=== PATIENT | male | born 1950 | race Caucasian/White ===

== ENCOUNTER → 2017-01-18 | Outpatient (CLI) | payer MEDICARE | LOC: MW.CHFP 08:00 | DX: E53.8 Deficiency of other specified B group vitamins (principal) | CPT/HCPCS: 96372; J3420 ==

== ENCOUNTER → 2017-02-20 | Outpatient (CLI) | payer MEDICARE | LOC: MW.CHFP 08:00 | PROVIDERS: ATTEND Emergency Medicine | DX: E53.8 Deficiency of other specified B group vitamins (principal) | CPT/HCPCS: 96372; J3420 ==

== ENCOUNTER → 2017-03-27 | Outpatient (CLI) | payer MEDICARE | END | disposition home or self-care (01) | LOC: MW.CHFP 09:04 | PROVIDERS: ATTEND Emergency Medicine | DX: Z00.00 Encounter for general adult medical examination without abnormal findings (principal); E11.9 Type 2 diabetes mellitus without complications; Z79.4 Long term (current) use of insulin; E53.8 Deficiency of other specified B group vitamins | CPT/HCPCS: 36415; 80053; 80061; 82044; 83036; 96372; G0463; J3420 ==

== ENCOUNTER 2017-08-14 07:29 | Day surgery (SDC) | payer MEDICARE ==
[~2017-08-14 07:29] MED LIST: Lactated Ringers 1,000 ML IV SCH
--- NOTE | 2017-08-14 08:37 | PCM.PREANE ---
Preanesthetic Assessment - Anesthesia/Transfusion/Family Hx Anesthesia History: Prior Anesthesia Without Reaction Other Type of Anesthesia Reaction Comment: Denies any known problem with anesthesia in past Family History of Anesthesia Reaction: No Transfusion History: No Prior Transfusion(s) Intubation History: Unknown - Review of Systems General: No Symptoms Pulmonary: No Symptoms Cardiovascular: No Symptoms Gastrointestinal: No Symptoms Neurological: No Symptoms Other: Reports: None - Physical Assessment NPO Status Date: 08/13/17 NPO Status Time: 22:00 O2 Sat by Pulse Oximetry: 96 Respiratory Rate: 16 Vital Signs: Last Vital Signs Temp 36.5 C 08/14/17 07:50 Pulse 90 08/14/17 07:50 Resp 16 08/14/17 07:50 BP 124/75 08/14/17 07:50 Pulse Ox 96 08/14/17 07:50 Height: 1.78 m Weight: 89.811 kg ASA Class: 3 Mental Status: Alert & Oriented x3 Airway Class: Mallampati = 2 Dentition: Reports: Dentures (upper and lower) Thyro-Mental Finger Breadths: 3 Mouth Opening Finger Breadths: 3 ROM/Head Extension: Full Lungs: Clear to Auscultation, Normal Respiratory Effort, Decreased Breath Sounds Cardiovascular: Regular Rate, Regular Rhythm - Allergies Allergies/Adverse Reactions: Allergies Allergy/AdvReac Type Severity Reaction Status Date / Time morphine Allergy Cardiac Verified 05/12/15 12:12 Arrest - Blood Blood Available: No - Anesthesia Plan Pre-Op Medication Ordered: None - Acknowledgements Anesthesia Type Planned: MAC Pt an Appropriate Candidate for the Planned Anesthesia: Yes Alternatives and Risks of Anesthesia Discussed w Pt/Guardian: Yes Pt/Guardian Understands and Agrees with Anesthesia Plan: Yes PreAnesthesia Questionnaire - Past Health History Medical/Surgical History: Denies Medical/Surgical History HEENT History: Reports: Macular Degeneration, Other (See Below) Other HEENT History: wears glasses (poor vision), top and bottom dentures Respiratory History: Reports: COPD, Other (See Below) Other Respiratory History: Reports was smoker, QUIT 11/09/2014, 50 + pack year smoker Gastrointestinal History: Reports: Other (See Below) Other Gastrointestinal History: Short Bowel syndrome, colostomy (since 1997), crohns disease Genitourinary History: Reports: Other (See Below) (chronic renal insuff.) Musculoskeletal History: Reports: Back Pain, Chronic, Fracture, Gout, Osteoarthritis Other Musculoskeletal History: Lower leg fracture Neurological History: Reports: None Psychiatric History: Reports: Depression Endocrine/Metabolic History: Reports: Diabetes, Type II, Other (See Below) Other Endocrine/Metabolic History: Insulin dependent Type II Diabetes (A1C 8.5) , glucose level 159 at 07 30 this morning Hematologic History: Reports: B12 Deficiency - Past Surgical History Head Surgeries/Procedures: Reports: None HEENT Surgical History: Reports: Cataract Surgery GI Surgical History: Reports: Cholecystectomy, Colon, Colonoscopy, Colostomy, Other (See Below) Other GI Surgeries/Procedures: multiple small bowel resection, hx proctectomy with permanent colostomy Neurological Surgical History: Reports: Other (See Below) Other Neurological Surgeries/Procedures: Lumbar surgery Musculoskeletal Surgical History: Reports: Arthroscopic Knee, Carpal Tunnel Other Musculoskeletal Surgeries/Procedures:: Low back surgery - SUBSTANCE USE Smoking Status *Q: Former Smoker (quit 3 years ago) Tobacco Use Within Last Twelve Months: Cigarettes Second Hand Smoke Exposure: No Days Per Week of Alcohol Use: 0 Recreational Drug Use History: No - HOME MEDS Home Medications: Home Meds Alendronate [Fosamax] 70 mg PO WEEKLY 03/10/14 [History] Allopurinol [Zyloprim] 300 mg PO DAILY 03/10/14 [History] Aspirin [Sari Chewable Aspirin] 81 mg PO DAILY 03/10/14 [History] Calcium Carbonate/Vitamin D3 [Calcium 600-Vit D3 400 Tablet] 1 each PO BID 03/10 [History] Potassium Chloride [Klor-Con] 20 meq PO TID 03/10/14 [History] buPROPion [Wellbutrin] 75 mg PO ASDIRECTED 03/10/14 [History] Cyanocobalamin (Vitamin B12) [Vitamin B12] 1 injection IM ASDIRECTED 05/12/15 [ History] Fish Oil/DHA/EPA [Fish Oil 1,200 MG] 2 tab PO BID 05/12/15 [History] Insuln Asp Prot/Insulin Aspart [NovoLOG Mix 70-30] 20 units SQ ACDIN 05/12/15 [ History] Insuln Asp Prot/Insulin Aspart [NovoLOG Mix 70-30] 30 unit SUBCUT ACBREAKFAST [History] Cholecalciferol (Vitamin D3) [Vitamin D3] 1,000 units PO BID 08/10/17 [History] Furosemide [Lasix] 20 mg PO ASDIRECTED PRN 08/10/17 [History] Ramipril 2.5 mg PO DAILY 08/10/17 [History] - CURRENT (IN HOUSE) MEDS Current Meds: Current Medications Lactated Ringer's (Ringers, Lactated) 1,000 mls @ 125 mls/hr IV ASDIRECTED NELLA Last Admin: 08/14/17 07:52 Dose: 125 mls/hr
[2017-08-14] MEDS ORDERED: Propofol 200 MG/20 ML SDV ONE ×2 (09:24→10:37)
[2017-08-14] MEDS ORDERED: fentaNYL 100 MCG/2 ML SDV ONE (09:24)
[2017-08-14] MEDS ORDERED: Midazolam 1 MG/ML 2 ML SDV ONE (09:24)
[2017-08-14] MEDS ORDERED: Phenylephrine/Normal Saline 100 MCG/ML 10 ML Syringe ONE (10:40)
--- NOTE | 2017-08-14 11:06 | PCM.OPNOTE ---
- General Post-Op/Procedure Note Date of Surgery/Procedure: 08/14/17 Operative Procedure(s): Trans-stomal colonoscopy Pre Op Diagnosis: History of Crohn's colitis Post-Op Diagnosis: No acute inflammatory change Anesthesia Technique: MAC (ASA III) Primary Surgeon: Franki Garay Feather Drying Machine Operator: Elizabeth Gaxiola Condition: Good Free Text/Narrative:: Dictation [id number]
[2017-08-14] MEDS ORDERED: Lactated Ringers 1,000 ML IV SCH (11:15)
[2017-08-14 11:34] VITALS: BP 111/77
--- NOTE | 2017-08-14 16:33 | OR ---
SURGEON: Franki Garay M.D. DATE OF PROCEDURE: 08/14/2017 OPERATION PERFORMED: Colonoscopy with biopsy of distal transverse colon. ANESTHESIA: MAC. ASA CLASSIFICATION: III. PREOPERATIVE DIAGNOSIS: Personal history of Crohn's disease. POSTOPERATIVE DIAGNOSIS: No neoplasia. DESCRIPTION OF PROCEDURE: The patient was taken to the endoscopy room, positioned on the endoscopy table in the supine position as he has a colostomy from previous resection of his rectum. Time-out was called for appropriate identification of the patient and procedure. Digital examination of the stoma was carried out. Following this, the colonoscope was inserted through the stoma and advanced without difficulty through the very short remaining segment of this colon into the distal small bowel, where examination was now carried out in an antegrade fashion. The anastomosis was widely patent and shows no acute inflammatory changes or ulcerations. There were some small petechiae in the distal transverse colon. Biopsies of this area were obtained. Remainder of the colon shows no acute inflammatory changes or ulcerations. No polyps were encountered. There was no evidence of diverticulosis. The colonoscope was then removed with the patient having tolerated the procedure well. He was taken to recovery room in stable condition. FERNANDO LEE /[id number] JANIYA
== END 2017-08-14 11:50 | disposition home or self-care (01) ==
LOC: MW.SDS 07:29
PROVIDERS: ATTEND Surgery
DX: Z12.11 Encounter for screening for malignant neoplasm of colon (principal); K50.90 Crohn's disease, unspecified, without complications; Z93.3 Colostomy status; E53.8 Deficiency of other specified B group vitamins; E11.22 Type 2 diabetes mellitus with diabetic chronic kidney disease; N18.9 Chronic kidney disease, unspecified; M19.049 Primary osteoarthritis, unspecified hand; J44.9 Chronic obstructive pulmonary disease, unspecified; F32.9 Major depressive disorder, single episode, unspecified; M96.1 Postlaminectomy syndrome, not elsewhere classified; M17.0 Bilateral primary osteoarthritis of knee; M81.0 Age-related osteoporosis without current pathological fracture; G89.4 Chronic pain syndrome; E11.42 Type 2 diabetes mellitus with diabetic polyneuropathy; M47.26 Other spondylosis with radiculopathy, lumbar region; K91.2 Postsurgical malabsorption, not elsewhere classified; M10.9 Gout, unspecified; Z98.0 Intestinal bypass and anastomosis status; Z90.49 Acquired absence of other specified parts of digestive tract; Z98.890 Other specified postprocedural states; Z88.5 Allergy status to narcotic agent; Z79.4 Long term (current) use of insulin; Z79.82 Long term (current) use of aspirin; Z79.899 Other long term (current) drug therapy; Z87.891 Personal history of nicotine dependence
CPT/HCPCS: 44389; 88305; J2250; J3010; J7120; 00810; J2704

== ENCOUNTER 2019-09-03 10:48 | Day surgery (SDC) | payer MEDICARE ==
[~2019-09-03 10:48] MED LIST changes: +Betamethasone Acetate/Betamethasone Sod Phosphate 30 MG/5 ML MDV EPIDUR ONE; +Iopamidol 200-M 10 ML vial ITHECAL ONE; -Lactated Ringers 1,000 ML IV SCH; +Lidocaine 2% 5 ML SDV INJECT ONE; +Ropivacaine 0.5% 5 MG/ML 30 ML SDV INJECT ONE
[2019-09-03] MEDS ORDERED: Iopamidol 408 MG/ML 50 ML SDV ONE (12:34)
[2019-09-03] MEDS ORDERED: Iopamidol 200-M 10 ML vial ITHECAL ONE (16:06)
[2019-09-03] MEDS ORDERED: Ropivacaine 0.5% 5 MG/ML 30 ML SDV INJECT ONE (16:06)
--- NOTE | 2019-09-03 20:10 | OR ---
SURGEON: Mindi Wilkins D.O. DATE OF PROCEDURE: 09/03/2019 PRIMARY SURGEON: Mindi Wilkins D.O. WAREHOUSE PACKAGING SUPERVISOR: OR staff present: 1. Anita Degroot. 2. Ulises Luna. 3. RT. Nadeem WOUND CLASS: I. PREOPERATIVE DIAGNOSES: 1. Failed back surgery syndrome. 2. Left lower extremity radiculopathy. 3. Chronic lumbosacral back pain. POSTOPERATIVE DIAGNOSES: 1. Failed back surgery syndrome. 2. Left lower extremity radiculopathy. 3. Chronic lumbosacral back pain. PROCEDURE PERFORMED: 1. Left S1 and S2 transforaminal epidural steroid injection. 2. Fluoroscopic guidance for needle placement. 3. Local with oral valium for sedation. SCREENING QUESTIONS: The patient answered "no" to all of the following questions: 1. Are you allergic to iodine, Betadine or latex? 2. Do you have a bleeding disorder? 3. Do you have any joint replacements, heart valve replacements, or a pacemaker? 4. Are you allergic to anti-inflammatories or blood thinners? 5. Do you have any current local or systemic infections? MEDICAL NECESSITY: This is a patient with a history of chronic low back pain and lower extremity radicular pain in the above dermatomal pattern that comes in for the above diagnostic and therapeutic procedure. Pertinent positives and negatives for this suspected disease process along with the diagnostic findings and testing are in the patient's history and physical exam. The most salient feature includes radicular pain in the above dermatomal pattern. The patient had failed attempts at conservative therapy including physical therapy, nonsteroidal anti- inflammatory drugs, and other medications. No contraindications to perform this procedure including medical, no bleeding disorders or infections, no psychological, no antisocial personality disorder or active addiction disorder. There are no work-related issues, and, in general, the patient does not have any history of multiple prior interventions, surgeries or nerve blocks which have failed to return the patient to function. The patient's other symptoms to be treated include numbness, paresthesia, dysesthesia or hypoesthesia referred into the left lower extremity or any weakness in the involved myotome. This procedure is being performed in accordance with national guidelines as written by the [employer] (SU). DESCRIPTION OF PROCEDURE: The patient had the procedure thoroughly explained including risks, benefits and alternatives. Consent was signed in my clinic indicating understanding and willingness to proceed. The patient presented to [facility] [place] where the patient was escorted to the dressing room to disrobe and change into a hospital gown. Preoperative vital signs were taken and stable. The patient reported that Valium was taken prior to the procedure. The patient was brought to the procedure room and placed in the prone position on the table. A pillow was placed under the abdomen in order to flatten the lumbar lordosis. The back was prepped with ChloraPrep and sterilely draped. All personnel in the operating room were dressed in appropriate attire including surgical scrubs, head and shoe covers. This was to ensure sterility while in the treatment room. During the time fluoroscopy was in use, all personnel in the operating room wore lead ernst with thyroid collars. Sterile technique was used during the procedure. The fluoroscope was placed for the S1 transforaminal epidural steroid injection. There was no sign of infection at the skin site for needle insertion. The skin was anesthetized with 2% lidocaine with a 27 gauge 1-1/2 inch needle. Then a 22 gauge 3-1/2 inch spinal needle, advanced to the foramen. Positive intravascular flow pattern was observed and positive heme with aspiration- Spinal needle was removed and repositioned. The fluoroscope was placed for the S1 Transforaminal epidural steroid injection. The skin was anesthetized with 2% lidocaine and then a3-1/2 inch spinal needle was advanced into the S2 foramen. Under direct fluoroscopic guidance needle position was verified in three views; AP, oblique and lateral, with 0.2 cubic centimeters increments of Isovue-200 dye. No intravascular flow pattern was observed under live fluoroscopy. A total of 12 milligrams of Celestone was slowly injected after negative aspiration of heme, cerebrospinal fluid and no paresthesias were noted. Then 3 cc of local inj 0.5% ropivacaine was injectede without complications The needle was cleared prior to removal from the skin. No adverse reactions were noted. The patient was brought to the recovery room awake and in good condition by my staff. The patient was monitored and discharge instructions were given after a brief stay in the recovery area. Both oral and written discharge and follow up instructions were given. The patient will follow up in the clinic in 3-4 weeks post procedure to evaluate the efficacy. The patient verbalized understanding including understanding of those signs and symptoms that would require emergency care and knows how to contact the office if there are any problems or questions in the meantime. PREOPERATIVE PAIN: 7/10. POSTOPERATIVE PAIN: 0/10. FOLLOWUP: In the Pain Clinic in 3 weeks. PAULA LEE /[id number] JANIYA
--- NOTE | 2019-09-04 15:54 | CR ---
Pelvis: Four fluoroscopic spot views were obtained centered to the right side of the sacrum. Study is a procedural exam for fluoroscopy-guided pain injection. No additional comments can be made. Impression: Procedural study. Diagnostic code #2 MTDD
== END 2019-09-03 13:15 | disposition home or self-care (01) ==
LOC: MW.SDS 10:48
PROVIDERS: ATTEND Anesthesiology
DX: G89.29 Other chronic pain (principal); M96.1 Postlaminectomy syndrome, not elsewhere classified; M19.049 Primary osteoarthritis, unspecified hand; M51.16 Intervertebral disc disorders with radiculopathy, lumbar region; M47.26 Other spondylosis with radiculopathy, lumbar region; N18.9 Chronic kidney disease, unspecified; J44.9 Chronic obstructive pulmonary disease, unspecified; E11.9 Type 2 diabetes mellitus without complications; M17.0 Bilateral primary osteoarthritis of knee; M81.0 Age-related osteoporosis without current pathological fracture; Z88.5 Allergy status to narcotic agent; Z79.4 Long term (current) use of insulin; Z79.899 Other long term (current) drug therapy; Z79.82 Long term (current) use of aspirin; Z87.891 Personal history of nicotine dependence
CPT/HCPCS: 64483; J0702; Q9966; 62323

== ENCOUNTER 2020-11-29 15:25 | Emergency (ER) | payer MEDICARE ==
[2020-11-29] MEDS ORDERED: traMADol 50 MG Tab PO ONE (16:38)
--- NOTE | 2020-11-29 16:41 | CR ---
Indication: Patient fell onto left side 1 day ago. Pain and swelling. Technique: Three views of the left elbow. Comparison: None Findings: No acute fracture or subluxation is identified. The joint spaces are well maintained. A trace joint effusion is identified. Impression: Trace joint effusion. Dictated by Jessica Amaya MD @ Nov 29 2020 4:38PM Signed by Dr. Jessica Amaya @ Nov 29 2020 4:39PM
--- NOTE | 2020-11-29 16:41 | CR ---
Indication: Fall. Swelling. Technique: Three views of the left wrist. Comparison: None Findings: Degenerative changes are identified at the 1st carpometacarpal joint space. No fracture or subluxation is identified. Impression: Degenerative change. No fracture identified. Dictated by Jessica Amaya MD @ Nov 29 2020 4:39PM Signed by Dr. Jessica Amaya @ Nov 29 2020 4:40PM
--- NOTE | 2020-11-29 16:43 | CR ---
INDICATION: Fell onto left side 1 day ago. Pain and swelling. Limited range of motion. COMPARISON: None. TECHNIQUE: Left shoulder 2 views. FINDINGS: No acute fracture is seen. Possible anterior subluxation versus dislocation on outlet view. IMPRESSION: Possible anterior subluxation/dislocation, although outlet view is suboptimal. Recommend repeat outlet view and/or axillary view. Dictated by Milan Noel MD @ Nov 29 2020 4:35PM Signed by Dr. Milan Noel @ Nov 29 2020 4:42PM
--- NOTE | 2020-11-29 16:44 | EDM.PDOC ---
ED HPI GENERAL MEDICAL PROBLEM - General Chief Complaint: Upper Extremity Injury/Pain Stated Complaint: n Time Seen by Provider: 11/29/20 15:26 Source of Information: Reports: Patient History Limitations: Reports: No Limitations - History of Present Illness INITIAL COMMENTS - FREE TEXT/NARRATIVE: HISTORY AND PHYSICAL: History of present illness: Patient is a 70-year-old male who presents to the emergency room with complaints of left shoulder, left elbow and left wrist pain post fall. He reports that 2 AM on 11/28/20 he was walking into his bathroom when he turned striking his head on the shower resulting in him falling. He denies any loss of consciousness but has had left upper extremity pain since. Patient denies any fever, chills, headache, change in vision, syncope or near syncope. Denies any chest pain, back pain, shortness of breath or cough. Denies any abdominal pain, nausea, vomiting, diarrhea, constipation or dysuria. Has not noted any blood in urine or stool. Patient has been eating and drinking appropriately. Tdap UTD. Review of systems: As per history of present illness and below otherwise all systems reviewed and negative. Past medical history: As per history of present illness and as reviewed below otherwise noncontributory. Surgical history: As per history of present illness and as reviewed below otherwise noncontributory. Social history: See social history for further information Family history: As per history of present illness and as reviewed below otherwise noncontributory. Physical exam: General: Well developed and well nourished 70-year-old male. Alert and orientated x 3. Nontoxic in appearance and in no acute distress. Vital signs are stable and have been reviewed by me. Nursing notes were reviewed. HEENT: Healing abrasion noted to the left temporal/eyebrow area (approx 9mm). Scalp is nontender, normocephalic, pupils equal and reactive bilaterally, negative for conjunctival pallor or scleral icterus, mucous membranes moist, TMs normal bilaterally, throat clear, neck supple, nontender, trachea midline. No drooling or trismus noted. No meningeal signs. No hot potato voice noted. Lungs: Clear to auscultation, breath sounds equal bilaterally, chest nontender. Normal work of breathing, no accessory muscles used. Heart: S1S2, regular rate and rhythm without overt murmur Abdomen: Soft, nondistended, nontender. Negative for masses or hepatosplenomegaly. Negative for costovertebral tenderness. C-spine/Back: No pinpoint vertebral tenderness upon palpation. No crepitus, step-offs or obvious deformities. Patient is ambulatory into the emergency room without difficulty or deficit. Able to rock back on heels and walk on toes. Denies any urinary or fecal incontinence. Denies any numbness, tingling or saddle paresthesia. No concerns of serious infection, fracture or cord compression, or cauda equina syndrome. Deep tendon reflexes brisk bilaterally. Skin: Healing abrasion noted to the left temporal/eyebrow area (approx 9mm). Remaining skin is intact, warm, dry. No lesions or rashes noted. Hematologic: No petechiae or purpra. Mucosa appropriate color and normal nail bed color and refill. Extremities: Limited ROM due to pain of the left shoulder, tenderness to left anterior shoulder girdle. Mild tenderness to the lateral aspect of the left elbow, with full ROM. Tenderness with palpation to the radial aspect of the left wrist with mild soft tissue swelling. Pelvis stable. He otherwise moves all other extremities per self without difficulty or deficits, negative for cords or calf pain. Neurovascular unremarkable. Neuro: Awake, alert, oriented. Cranial nerves II through XII unremarkable. Cerebellum unremarkable. Motor and sensory unremarkable throughout. Exam nonfocal. Psychiatric: Mood and affect are appropriate. Normal thought process. Answering questions appropriately. Notes: *This patient was seen and evaluated during the 2019 SARS-CoV-2 novel coronavirus pandemic period. Community viral transmission is ongoing at time of this encounter and the emergency department is operating under pandemic response procedures. Head CT shows no acute intracranial hemorrhage or mass. Left elbow x-ray shows trace joint effusion. No acute fracture or subluxation is identified. Wrist shows degenerative changes. No fracture identified. Left shoulder shows a possible anterior subluxation/dislocation, although outlet view is suboptimal. Recommend repeat outlet view and/or axillary view was obtained. Repeat view shows the glenohumeral alignment is within the limits. No evidence of dislocation. I have talked with the patient about today's findings, in addition to providing specific details for plan of care. Fitted for a left wrist cock-up splint and sling for the wrist sprain and shoulder injury. Assist in resting the extremity. To wear over the next 2-3 days or until he follows up with orthopedics. Reassessment at the time of disposition demonstrates that the patient is in no acute distress. The patient is stable for discharge, counseling was provided and we discussed in great detail signs and symptoms that would prompt them to return to the Emergency Department. Medication, follow up and supportive care measures were reviewed and discussed. Voices understanding and is agreeable to plan of care. Denies any further questions or concerns at this time. Diagnostics: Head CT, Xray left wrist/elbow/shoulder Therapeutics: Tramadol, wrist splint and sling Prescription: Tramadol (#15) Impression: Fall Left shoulder injury Left wrist sprain Plan: 1. X-ray shows no fractures. Rest, ice and elevate the extremity as able. You may use the wrist splint and sling over the next 2-3 days to keep the arm comfortable. Ice to the areas (15 minutes on/off) - do not apply directly to the skin. 2. You can alternate Tylenol and ibuprofen as needed for pain and fever management. 3. We encourage you to follow up with your primary care provider and/or orthopedic provider in the next few days for re-evaluation and further care/management. 4. If your symptoms should worsen, new symptoms develop or any of the signs and symptoms we discussed should arise please return to the emergency room or call 911 (if needed). Definitive disposition and diagnosis as appropriate pending reevaluation and review of above. Left Arm Pain Score (Numeric/FACES): 10 - Related Data Allergies Allergy/AdvReac Type Severity Reaction Status Date / Time morphine Allergy Cardiac Verified 11/29/20 15:30 Arrest Home Meds: Home Meds Alendronate [Fosamax] 70 mg PO WEEKLY 03/10/14 [History] Aspirin [Sari Chewable Aspirin] 81 mg PO DAILY 03/10/14 [History] Calcium Carbonate/Vitamin D3 [Calcium 600-Vit D3 400 Tablet] 1 each PO BID 03/10/14 [History] Potassium Chloride [Klor-Con] 20 meq PO TID 03/10/14 [History] allopurinoL [Zyloprim] 300 mg PO DAILY 03/10/14 [History] buPROPion [Wellbutrin] 75 mg PO ASDIRECTED 03/10/14 [History] Cyanocobalamin (Vitamin B12) [Vitamin B12] 1 injection IM ASDIRECTED 05/12/15 [History] Fish Oil/DHA/EPA [Fish Oil 1,200 MG] 2 tab PO BID 05/12/15 [History] Insuln Asp Prot/Insulin Aspart [NovoLOG Mix 70-30] 20 units SQ ACDIN 05/12/15 [History] Insuln Asp Prot/Insulin Aspart [NovoLOG Mix 70-30] 30 unit SUBCUT ACBREAKFAST 05/12/15 [History] Cholecalciferol (Vitamin D3) [Vitamin D3] 1,000 units PO BID 08/10/17 [History] Furosemide [Lasix] 20 mg PO ASDIRECTED PRN 08/10/17 [History] Ramipril 2.5 mg PO DAILY 08/10/17 [History] Past Medical History - Past Health History Medical/Surgical History: Denies Medical/Surgical History HEENT History: Reports: Macular Degeneration, Other (See Below) Other HEENT History: wears glasses (poor vision), top and bottom dentures Respiratory History: Reports: COPD, Other (See Below) Other Respiratory History: Reports was smoker, QUIT 11/09/2014, 50 + pack year smoker Gastrointestinal History: Reports: Other (See Below) Other Gastrointestinal History: Short Bowel syndrome, colostomy (since 1997), crohns disease Genitourinary History: Reports: Other (See Below) Other Genitourinary History: pt denies Musculoskeletal History: Reports: Back Pain, Chronic, Fracture, Gout, Osteoarthritis Other Musculoskeletal History: Lower leg fracture Neurological History: Reports: None Psychiatric History: Reports: Depression Endocrine/Metabolic History: Reports: Diabetes, Type II, Other (See Below) Other Endocrine/Metabolic History: Insulin dependent Type II Diabetes (A1C 8.5), glucose level 159 at 07 30 this morning Hematologic History: Reports: B12 Deficiency - Infectious Disease History Infectious Disease History: Reports: Chicken Pox, Measles, Mumps, Rubella - Past Surgical History Head Surgeries/Procedures: Reports: None HEENT Surgical History: Reports: Cataract Surgery GI Surgical History: Reports: Cholecystectomy, Colon, Colonoscopy, Colostomy, Other (See Below) Other GI Surgeries/Procedures: multiple small bowel resection, hx proctectomy with permanent colostomy Neurological Surgical History: Reports: Other (See Below) Other Neurological Surgeries/Procedures: Lumbar surgery Musculoskeletal Surgical History: Reports: Arthroscopic Knee, Carpal Tunnel Other Musculoskeletal Surgeries/Procedures:: Low back surgery Social & Family History - Family History Family Medical History: No Pertinent Family History - Caffeine Use Caffeine Use: Reports: None Review of Systems - Review of Systems Review Of Systems: Comprehensive ROS is negative, except as noted in HPI. ED EXAM, GENERAL - Physical Exam Exam: See Below (See dictation) Course - Vital Signs Last Recorded V/S: Last Vital Signs Temp 98.9 F 11/29/20 15:30 Pulse 89 11/29/20 15:30 Resp 20 11/29/20 15:30 BP 152/73 H 11/29/20 15:30 Pulse Ox 95 11/29/20 15:30 - Orders/Labs/Meds Orders: Active Orders 24 hr Category Date Time Status DME for Discharge [COMM] Stat Oth 11/29/20 17:37 Ordered Meds: Medications Discontinued Medications Generic Name Dose Route Start Last Admin Trade Name Freq PRN Reason Stop Dose Admin Tramadol HCl 50 mg 11/29/20 16:38 11/29/20 16:52 Ultram PO 11/29/20 16:39 50 mg ONETIME ONE Administration Tramadol HCl Confirm 11/29/20 16:51 11/29/20 16:53 Ultram Administered 11/29/20 16:52 Not Given Dose 50 mg .ROUTE .STK-MED ONE Departure - Departure Time of Disposition: 17:38 Disposition: Home, Self-Care 01 Clinical Impression: Fall Qualifiers: Encounter type: initial encounter Qualified Code(s): W19.XXXA - Unspecified fall, initial encounter Left wrist sprain Qualifiers: Encounter type: initial encounter Qualified Code(s): S63.502A - Unspecified sprain of left wrist, initial encounter Injury of left shoulder Qualifiers: Encounter type: initial encounter Qualified Code(s): S49.92XA - Unspecified injury of left shoulder and upper arm, initial encounter - Discharge Information Referrals: Kang Car MD [Primary Care Provider] - Forms: ED Department Discharge Additional Instructions: The following information is given to patients seen in the emergency department who are being discharged to home. This information is to outline your options for follow-up care. We provide all patients seen in our emergency department with a follow-up referral. The need for follow-up, as well as the timing and circumstances, are variable depending upon the specifics of your emergency department visit. If you don't have a primary care physician on staff, we will provide you with a referral. We always advise you to contact your personal physician following an emergency department visit to inform them of the circumstance of the visit and for follow-up with them and/or the need for any referrals to a consulting specialist. The emergency department will also refer you to a specialist when appropriate. This referral assures that you have the opportunity for follow-up care with a specialist. All of these measure are taken in an effort to provide you with optimal care, which includes your follow-up. Under all circumstances we always encourage you to contact your private physician who remains a resource for coordinating your care. When calling for follow-up care, please make the office aware that this follow-up is from your recent emergency room visit. If for any reason you are refused follow-up, please contact the [facility] Emergency Department at and asked to speak to the emergency department charge nurse. [facility] [address] [place] [id number] [facility] [address] [place] [id number] Thank you for choosing the [facility] emergency department in [place] for your medical needs today. It was a pleasure caring for you. Today you were seen in the emergency department for left upper extremity pain after falling. 1. X-ray shows no fractures. Rest, ice and elevate the extremity as able. You may use the wrist splint and sling over the next 2-3 days to keep the arm comfortable. Ice to the areas (15 minutes on/off) - do not apply directly to the skin. 2. You can alternate Tylenol and ibuprofen as needed for pain and fever management. 3. We encourage you to follow up with your primary care provider and/or orthopedic provider in the next few days for re-evaluation and further care/management. 4. If your symptoms should worsen, new symptoms develop or any of the signs and symptoms we discussed should arise please return to the emergency room or call 911 (if needed). Sepsis Event Note (ED) - Evaluation Sepsis Screening Result: No Definite Risk - Focused Exam Vital Signs: Vital Signs Temp Pulse Resp BP Pulse Ox 11/29/20 15:30 98.9 F 89 20 152/73 H 95 - My Orders Last 24 Hours: My Active Orders 11/29/20 17:37 DME for Discharge [COMM] Stat - Assessment/Plan Last 24 Hours: My Active Orders 11/29/20 17:37 DME for Discharge [COMM] Stat
--- NOTE | 2020-11-29 16:45 | CT ---
Indication: Hit head with possible loss of consciousness Technique: Noncontrast head CT Comparison: No comparison Findings: Axial noncontrast images through the brain parenchyma demonstrates no acute intracranial hemorrhage or mass. No midline shift no abnormal extra-axial air fluid collections. Paranasal sinuses, mastoid air cells, skull scalp appear unremarkable. Impression: No acute intracranial hemorrhage or mass. Please note that all CT scans at this facility use dose modulation, iterative reconstruction, and/or weight-based dosing when appropriate to reduce radiation dose to as low as reasonably achievable. Dictated by Carolina Trejo MD @ Nov 29 2020 4:40PM Signed by Dr. Carolina Trejo @ Nov 29 2020 4:44PM
[2020-11-29] MEDS ORDERED: traMADol 50 MG Tab ONE (16:51)
--- NOTE | 2020-11-29 17:36 | CR ---
INDICATION: Left shoulder pain. COMPARISON: 11/29/2020. TECHNIQUE: Outlet view of the left shoulder. IMPRESSION: Glenohumeral alignment is within the limits. No evidence of dislocation. Dictated by Milan Noel MD @ Nov 29 2020 5:32PM Signed by Dr. Milan Noel @ Nov 29 2020 5:35PM
[2020-11-29 18:53] VITALS: BP 146/67; PULSE 91
== END 2020-11-29 17:56 | disposition home or self-care (01) ==
LOC: MW.ED 15:25
DX: S63.502A Unspecified sprain of left wrist, initial encounter (principal); S49.92XA Unspecified injury of left shoulder and upper arm, initial encounter; J44.9 Chronic obstructive pulmonary disease, unspecified; M19.90 Unspecified osteoarthritis, unspecified site; E11.9 Type 2 diabetes mellitus without complications; Z87.891 Personal history of nicotine dependence; Z88.5 Allergy status to narcotic agent; Z79.82 Long term (current) use of aspirin; Z79.899 Other long term (current) drug therapy; Z79.4 Long term (current) use of insulin; W18.09XA Striking against other object with subsequent fall, initial encounter; Y93.01 Activity, walking, marching and hiking; Y92.002 Bathroom of unspecified non-institutional (private) residence as the place of occurrence of the external cause
CPT/HCPCS: 70450; 73030; 73080; 73110; 99284; A9270; 73020-LT; 99283

== ENCOUNTER 2023-10-20 12:46 | Emergency (ER) | payer MEDICARE ==
[2023-10-20] MEDS ORDERED: Sodium Chloride 0.9% 1,000 ML IV ONE (12:53)
[2023-10-20] MEDS ORDERED: Acetaminophen 500 MG Tab PO ONE (13:05)
[2023-10-20 14:23] LABS: APPEARANCE,URINE CLEAR; BILIRUBIN,URINE NEGATIVE (NEGATIVE); COLOR,URINE YELLOW; GLUCOSE,URINE NEGATIVE (NEGATIVE); KETONES,URINE NEGATIVE (NEGATIVE); LEUKOCYTE ESTERASE,URINE NEGATIVE (NEGATIVE); NITRITE,URINE NEGATIVE (NEGATIVE); OCCULT BLOOD,URINE SMALL (NEGATIVE); PROTEIN,URINE 100 mg/dL (NEGATIVE); UROBILINOGEN,URINE 0.2 EU/dL (<2.0)
[2023-10-20 14:39] LABS: BACTERIA,URINE NOT SEEN (NEGATIVE); EPITHELIAL CELLS,URINE NOT SEEN (NONE-FEW); RBC,URINE 0-1 (0-2/HPF); WBC,URINE 0-1 (0-5/HPF)
[2023-10-20 14:40] LABS: YEAST,URINE OCCASIONAL
[2023-10-20 18:33] VITALS: BP 109/62; PULSE 71
== END 2023-10-20 18:33 ==
LOC: MW.ED 12:46
DX: U07.1 COVID-19 (principal); N17.9 Acute kidney failure, unspecified; J44.9 Chronic obstructive pulmonary disease, unspecified; M19.90 Unspecified osteoarthritis, unspecified site; E11.9 Type 2 diabetes mellitus without complications; Z79.82 Long term (current) use of aspirin; Z79.899 Other long term (current) drug therapy; Z79.4 Long term (current) use of insulin; Z88.5 Allergy status to narcotic agent; Z90.49 Acquired absence of other specified parts of digestive tract; Z87.891 Personal history of nicotine dependence; Z20.822 Contact with and (suspected) exposure to COVID-19
CPT/HCPCS: 0241U; 36415; 71045; 74176; 80053; 81001; 85025; 96360; 96361; 99213; 99285; A9270; J7030; 99283

== ENCOUNTER 2023-10-30 14:28 | Emergency (ER) | payer MEDICARE ==
[2023-10-30] MEDS ORDERED: Sodium Chloride 0.9% 1,000 ML IV ONE ×3 (14:33→17:24)
[2023-10-30 14:48] LABS: BASOPHILS ABSOLUTE AUTO 0.04 K/uL (0.00-0.20); BASOPHILS PERCENT AUTO 0.3 % (0.0-1.0); EOSINOPHILS PERCENT AUTO 0.9 % (0.0-6.0); HEMATOCRIT 42.3 % (42.0-52.0); HEMOGLOBIN 14.8 g/dL (14.0-18.0); IMMATURE GRAN ABSOLUTE AUTO 0.06 K/uL (0.00-0.05); IMMATURE GRAN PERCENT AUTO 0.5 % (0.0-0.4); LYMPHOCYTES ABSOLUTE AUTO 2.14 K/uL (1.00-4.80); LYMPHOCYTES PERCENT AUTO 18.6 % (24.0-44.0); MEAN CORPUSCULAR HEMOGLOBIN 29.7 pg (28.0-32.0); MEAN CORPUSCULAR VOLUME 84.9 fL (83.0-99.0); MEAN PLATELET VOLUME 10.6 fL (9.4-12.4); MONOCYTES ABSOLUTE AUTO 0.94 K/uL (0.00-0.80); MONOCYTES PERCENT AUTO 8.2 % (0.0-8.0); NEUTROPHILS ABSOLUTE AUTO 8.24 K/uL (1.80-7.70); NEUTROPHILS PERCENT AUTO 71.5 % (41.0-71.0); PLATELET COUNT,PLT 191 K/uL (150-400); RED BLOOD CELL COUNT 4.98 M/uL (4.52-5.90); WHITE BLOOD CELL COUNT,WBC 11.52 K/uL (3.9-11.3)
[2023-10-30 15:19] LABS: LACTIC ACID 2.4 mmol/L (0.4-2.0)
[2023-10-30 15:25] LABS: ALANINE AMINOTRANSFERASE,ALT 27 IU/L (14-63); ALBUMIN 4.3 g/dL (3.4-5.0); ALKALINE PHOSPHATASE 142 U/L (46-116); ASPARTATE AMNIOTRANSFERASE,AST 23 IU/L (15-37); BILIRUBIN TOTAL 3.2 mg/dL (0.2-1.0); BLOOD UREA NITROGEN,BUN 89 mg/dL (7.0-18.0); CALCIUM 10.1 mg/dL (8.5-10.1); CARBON DIOXIDE,CO2 35.6 mmol/L (21.0-32.0); CHLORIDE,CL 88 mmol/L (98-107); CREATINE KINASE,CK 237 U/L (26-308); CREATININE 6.5 mg/dL (0.8-1.3); GLUCOSE RANDOM 113 mg/dL (74-106); MAGNESIUM 1.7 mg/dL (1.8-2.4); POTASSIUM,K 3.9 mmol/L (3.5-5.1); PROTEIN TOTAL,TP 8.6 g/dL (6.4-8.2); SODIUM,NA 134 mmol/L (136-148)
[2023-10-30 15:32] LABS: ESTIMATED GFR 8 mL/min (>60)
[2023-10-30] MEDS ORDERED: LORazepam 2 MG/ML SDV IVPUSH ONE (17:23)
[2023-10-30 17:31] VITALS: PULSE 77
[2023-10-30 19:08] VITALS: BP 98/49
[2023-10-30] MEDS ORDERED: LORazepam 2 MG/ML SDV ONE (19:24)
== END 2023-10-30 19:29 ==
LOC: MW.ED 14:28
DX: R56.9 Unspecified convulsions (principal); N17.9 Acute kidney failure, unspecified; E86.0 Dehydration; J44.9 Chronic obstructive pulmonary disease, unspecified; E11.22 Type 2 diabetes mellitus with diabetic chronic kidney disease; Z79.82 Long term (current) use of aspirin; Z79.4 Long term (current) use of insulin; Z79.899 Other long term (current) drug therapy; Z88.5 Allergy status to narcotic agent; Z87.891 Personal history of nicotine dependence
CPT/HCPCS: 36415; 70450; 71045; 80053; 82550; 83605; 83735; 83880; 84484; 85025; 93005; 96361; 96374; 99285; J2060; J7030; 93010